=== PATIENT | female | born 1970 | race Caucasian/White ===

== ENCOUNTER 2019-01-29 14:53 | Emergency (ER) | payer MEDICAID ==
[2019-01-29 15:16] VITALS: BP 110/96
[2019-01-29] MEDS ORDERED: NORMAL SALINE 1000 ML 1,000 ML IV ONE (15:56)
[2019-01-29] MEDS ORDERED: HYDROMORPHONE HCL INJ/PF 2 MG/ML AMPULE IV ONE (15:56)
--- NOTE | 2019-01-29 15:57 | RADIOLOGY REPORT (SQ) ---
EXAM DESCRIPTION: HIP LEFT AP/LATERAL COMPLETED DATE/TIME: 01/29/2019 3:13 pm REASON FOR STUDY: bed 13 molina r/o fracture +tenderness COMPARISON: None. NUMBER OF VIEWS: Two views. TECHNIQUE: AP pelvis and additional frog-leg view of the left hip. LIMITATIONS: None. FINDINGS: MINERALIZATION: Normal. LEFT HIP: No fracture or dislocation. No worrisome bone lesions. RIGHT HIP: No fracture or dislocation. No worrisome bone lesions. PUBIS AND ISCHIUM: No fracture. PELVIS: No fracture. SACRUM: No fracture or dislocation. No worrisome bone lesions. LOWER LUMBAR SPINE: No fracture or dislocation. No worrisome bone lesions. No significant disc disea se. SOFT TISSUES: No findings. OTHER: No other significant finding. IMPRESSION: NEGATIVE STUDY OF THE LEFT HIP AND PELVIS. NO RADIOGRAPHIC EVIDENCE OF ACUTE INJURY. TECHNICAL DOCUMENTATION: JOB ID: [id number] [employer]- All Rights Reserved Reading location - IP/workstation name: [email or web address]
--- NOTE | 2019-01-29 16:00 | ER Document Report ---
ED General - General Chief Complaint: Hip Injury Stated Complaint: FALL/FOOT PAIN Time Seen by Provider: 01/29/19 15:01 TRAVEL OUTSIDE OF THE [place] IN LAST 30 DAYS: No - HPI Notes: Patient is a 48-year-old female that presents to the emergency department for chief complaint of fall. Patient reports history of metastatic breast cancer. She states over the last few weeks she has had increasing issues with balance and increasing frequency of headaches. She states today she stood up out of a chair and lost her balance falling backwards landing on her left side. She does not believe she hit her head. She denies any loss of consciousness. She is complaining of a sharp pain in her left hip and is worse with any movement. She did receive fentanyl by EMS and reports no improvement of pain. She denies being on prescription pain medications at home. Patient states since being in the emergency room she has developed a achy pain in her thoracic back. She denies any difficulty breathing or chest pain. She denies recent fevers or chills. Patient does currently have a headache which feels like the headache she has been having over the last few weeks. She describes it as diffuse and throbbing. Patient reports having a contrasted MRI of her brain at [facility] last week that was read as likely no metastasis. Patient also states she has been having numbness in her left foot. Last week the numbness was mostly located on the plantar surface of the left foot in her left toes but has since started spreading up her left leg, she now reports decreased sensation below her left knee. Past Medical History: Metastatic breast cancer Past Surgical History: Mastectomy Social History: Lives at home. Denies alcohol and tobacco abuse Family History: Reviewed and noncontributory for presenting illness Allergies: Reviewed, see documented allergy list. REVIEW OF SYSTEMS: CONSTITUTIONAL : No fever No chills No diaphoresis No recent illness EENT: No vision changes No congestion No sore throat CARDIOVASCULAR: No chest pain No palpitations RESPIRATORY: No shortness of breath No cough No difficulty breathing GASTROINTESTINAL: No abdominal pain No nausea No vomiting No diarrhea GENITOURINARY: No dysuria No hematuria No difficulty urinating MUSCULOSKELETAL: back pain leg pain No arm pain SKIN: No rashes No lesions LYMPHATIC: No swollen, enlarged glands. NEUROLOGICAL: No lightheadedness headache No weakness paresthesias PSYCHIATRIC: No anxiety No depression PHYSICAL EXAMINATION: Vital signs reviewed, nursing noted reviewed. GENERAL: Appears uncomfortable, well-nourished and in no acute distress. HEAD: Atraumatic, normocephalic. EYES: Eyes appear normal, extraocular movements intact, sclera anicteric, conjunctiva are normal. ENT: nares patent, oropharynx clear without exudates. Moist mucous membranes. NECK: Normal range of motion, supple without lymphadenopathy LUNGS: Breath sounds clear to auscultation bilaterally and equal. No wheezes rales or rhonchi. HEART: Regular rate and rhythm without murmurs ABDOMEN: Soft, nontender, normoactive bowel sounds. No rebound, guarding, or rigidity. No masses appreciated. Back: Bilateral paraspinal tenderness in the thoracic region, mild midline tenderness in her thoracic spine without deformity or step-off. No lumbar central or paraspinal tenderness. Normal range of motion of the spine. EXTREMITIES: Tenderness to palpation of the left hip with decreased range of m otion, no obvious deformity or extremity shortening or rotation., good range of motion, no pitting or edema. NEUROLOGICAL: No focal neurological deficits. Moves all extremities spontaneously Motor and sensory grossly intact on exam. PSYCH: Normal mood, normal affect. SKIN: Warm, Dry, normal turgor, no rashes or lesions noted on exposed skin - Related Data Allergies/Adverse Reactions: adhesive tape Allergy (Verified 01/29/19 15:12) iodine Allergy (Verified 01/29/19 15:11) latex Allergy (Verified 01/29/19 15:11) shellfish derived Allergy (Verified 01/29/19 15:11) Past Medical History - Social History Smoking Status: Unknown if Ever Smoked Family History: Reviewed & Not Pertinent Patient has suicidal ideation: No Patient has homicidal ideation: No - Past Medical History Cardiac Medical History: Reports: Hx Congestive Heart Failure - L-sided Physical Exam - Vital signs Vitals: Pulse BP Pulse Ox 71 110/96 H 100 01/29/19 15:13 01/29/19 15:13 01/29/19 15:13 Course - Re-evaluation Re-evalutation: 01/29/19 16:00 Vitals reviewed. Nursing notes reviewed. Patient received fentanyl by EMS but still appears very uncomfortable. She will be given Dilaudid for further pain control. 01/29/19 17:47 Patient's x-ray showed no acute hip fracture however she was still having significant tenderness. Patient had a CT scan next of the lower extremity which shows no pelvic or hip fractures. On reevaluation she did have some symptomatic relief after receiving the Dilaudid. The pain medication has made her nauseated and she was ordered Zofran. Patient's blood work is unremarkable. CT scan and x-rays show no other acute injuries. Patient will be given Zofran for her continued nausea. She was counseled on rest, ice and elevation. Laboratory 01/29/19 01/29/19 16:20 16:20 WBC 8.2 RBC 4.18 Hgb 13.4 Hct 39.1 MCV 94 MCH 32.0 MCHC 34.3 RDW 13.2 Plt Count 304 Lymph % (Auto) 22.6 [place] % (Auto) 5.2 Eos % (Auto) 0.6 Baso % (Auto) 0.8 Absolute Neuts (auto) 5.8 Absolute Lymphs (auto) 1.9 Absolute Monos (auto) 0.4 Absolute Eos (auto) 0.0 Absolute Basos (auto) 0.1 Seg Neutrophils % 70.8 Sodium 136.7 L Potassium 3.8 Chloride 104 Carbon Dioxide 22 Anion Gap 11 BUN 18 Creatinine 0.68 Est GFR ( Amer) > 60 Est GFR (MDRD) Non-Af > 60 Glucose 84 Calcium 9.8 Hip X-Ray 01/29/19 00:00 IMPRESSION: NEGATIVE STUDY OF THE LEFT HIP AND PELVIS. NO RADIOGRAPHIC EVIDENCE OF ACUTE INJURY. Head CT 01/29/19 15:55 IMPRESSION: NORMAL BRAIN CT WITHOUT CONTRAST. EVIDENCE OF ACUTE STROKE: NO. Lower Extremity CT 01/29/19 15:55 IMPRESSION: NO ACUTE OR SIGNIFICANT FINDINGS IN THE HIP OR PELVIS. Chest X-Ray 01/29/19 15:57 IMPRESSION: NO ACUTE RADIOGRAPHIC FINDING IN THE CHEST. Patient will follow closely with her primary care. She will return for new or worsening symptoms. She is stable at discharge. - Vital Signs Vital signs: Temp Pulse Resp BP Pulse Ox 98.0 F 71 110/96 H 100 01/29/19 15:15 01/29/19 15:13 01/29/19 15:13 01/29/19 15:13 - Laboratory Result Diagrams: 01/29/19 16:20 01/29/19 16:20 Laboratory results interpreted by me: 01/29/19 16:20 Sodium 136.7 L Discharge - Discharge Clinical Impression: Left hip pain Condition: Stable Disposition: HOME, SELF-CARE Instructions: Contusion ([facility]) Additional Instructions: Please return to the emergency department if you have any worsening, or concern of your symptoms. Please return to the emergency department if you develop chest pain, difficulty breathing, severe abdominal pain, or ongoing vomiting. Please follow-up with your primary care physician in 2-3 days and any other recommended physicians. If prescribed, take all medications as directed. If you have any questions or concerns do not hesitate to return the emergency department for evaluation. Please continue to follow with your oncologist for further evaluation of your pe ripheral numbness and metastases.
[2019-01-29 16:35] LABS: ABSOLUTE BASOPHILS # (AUTO) 0.1 10^3/uL (0.0-0.2); ABSOLUTE LYMPHOCYTES (AUTO) 1.9 10^3/uL (0.5-4.7); ABSOLUTE MONOCYTES (AUTO) 0.4 10^3/uL (0.1-1.4); ABSOLUTE NEUT (AUTO) 5.8 10^3/uL (1.7-8.2); BASOPHILS % (AUTO) 0.8 % (0-2); EOSINOPHILS % (AUTO) 0.6 % (0-6); HEMATOCRIT 39.1 % (36.0-47.0); HEMOGLOBIN 13.4 g/dL (12.0-15.5); LYMPHOCYTES % (AUTO) 22.6 % (13-45); MEAN CORPUSCULAR HGB CONC 34.3 g/dL (32.0-36.0); MEAN CORPUSCULAR VOLUME 94 fl (80-97); MONOCYTES % (AUTO) 5.2 % (3-13); PLATELET COUNT 304 10^3/uL (150-450); RED BLOOD COUNT 4.18 10^6/uL (3.72-5.28); RED CELL DISTRIBUTION WIDTH 13.2 % (11.5-14.0); SEGMENTED NEUTROPHILS % (AUTO) 70.8 % (42-78); TOTAL CELLS COUNTED % (AUTO) 100 %; WHITE BLOOD COUNT 8.2 10^3/uL (4.0-10.5)
[2019-01-29 16:51] LABS: ANION GAP 11 (5-19); BLOOD UREA NITROGEN 18 mg/dL (7-20); CALCIUM 9.8 mg/dL (8.4-10.2); CARBON DIOXIDE 22 mmol/L (22-30); CHLORIDE 104 mmol/L (98-107); GLUCOSE 84 mg/dL (75-110); POTASSIUM 3.8 mmol/L (3.6-5.0)
--- NOTE | 2019-01-29 16:59 | RADIOLOGY REPORT (SQ) ---
EXAM DESCRIPTION: CT HEAD WITHOUT COMPLETED DATE/TIME: 01/29/2019 4:49 pm REASON FOR STUDY: headache, hx metastatic breast CA COMPARISON: None. TECHNIQUE: Axial images acquired through the brain without intravenous contrast. Images reviewed wi th bone, brain and subdural windows. Additional sagittal and coronal reconstructions were generated. Images stored on PACS. All CT scanners at this facility use dose modulation, iterative reconstruction, and/or weight based d osing when appropriate to reduce radiation dose to as low as reasonably achievable (ALARA). [facility]: Dose Right [facility]: CareDose [facility]: Dose Right [facility]: Teradose 4D [facility]: [employer] RADIATION DOSE: CT Rad equipment meets quality standard of care and radiation dose reduction techniq ues were employed. CTDIvol: 53.2 mGy. DLP: 1044 mGy-cm. mGy. LIMITATIONS: None. FINDINGS: VENTRICLES: Normal size and contour. CEREBRUM: No masses. No hemorrhage. No midline shift. No evidence for acute infarction. Normal gra y/white matter differentiation. No areas of low density in the white matter. CEREBELLUM: No masses. No hemorrhage. No alteration of density. No evidence for acute infarction. EXTRAAXIAL SPACES: No fluid collections. No masses. ORBITS AND GLOBE: No intra- or extraconal masses. Normal contour of globe without masses. CALVARIUM: No fracture. PARANASAL SINUSES: No fluid or mucosal thickening. SOFT TISSUES: No mass or hematoma. OTHER: No other significant finding. IMPRESSION: NORMAL BRAIN CT WITHOUT CONTRAST. EVIDENCE OF ACUTE STROKE: NO. COMMENT: Quality ID # [id number]: Final reports with documentation of one or more dose reduction techniques (e.g., Automated exposure control, adjustment of the mA and/or kV according to patient size, use of iterative reconstruction technique) TECHNICAL DOCUMENTATION: JOB ID: [id number] [employer]- All Rights Reserved Reading location - IP/workstation name: [email or web address]
--- NOTE | 2019-01-29 17:00 | RADIOLOGY REPORT (SQ) ---
EXAM DESCRIPTION: CT LT LOWER EXTREMITY WITHOUT COMPLETED DATE/TIME: 01/29/2019 4:49 pm REASON FOR STUDY: left hip trauma COMPARISON: None. TECHNIQUE: CT scan of the left hip performed without intravenous or oral contrast. Images reviewed with soft tissue and bone windows. Reconstructed coronal and sagittal MPR images reviewed. All imag es stored on PACS. All CT scanners at this facility use dose modulation, iterative reconstruction, and/or weight based d osing when appropriate to reduce radiation dose to as low as reasonably achievable (ALARA). [facility]: Dose Right [facility]: CareDose [facility]: Dose Right [facility]: Teradose 4D [facility]: [employer] RADIATION DOSE: CT Rad equipment meets quality standard of care and radiation dose reduction techniq ues were employed. CTDIvol: 4.1 mGy. DLP: 128 mGy-cm. mGy. LIMITATIONS: None. FINDINGS: PELVIC BONES: No acute fracture. No worrisome bone lesions. VISUALIZED SPINE: No acute findings. SYMPTOMATIC HIP: No acute fracture or dislocation. No worrisome bone lesions. OPPOSITE HIP: No acute fracture or dislocation. No worrisome bone lesions. PELVIC SOFT TISSUES: No significant findings. EXTRAPELVIC SOFT TISSUES: No significant findings. OTHER: No other significant finding. IMPRESSION: NO ACUTE OR SIGNIFICANT FINDINGS IN THE HIP OR PELVIS. TECHNICAL DOCUMENTATION: JOB ID: [id number] Quality ID # [id number]: Final reports with documentation of one or more dose reduction techniques (e.g., Au tomated exposure control, adjustment of the mA and/or kV according to patient size, use of iterative reconstruction technique) 2010 [employer]- All Rights Reserved Reading location - IP/workstation name: [email or web address]
--- NOTE | 2019-01-29 17:19 | RADIOLOGY REPORT (SQ) ---
EXAM DESCRIPTION: CHEST 2 VIEWS COMPLETED DATE/TIME: 01/29/2019 5:02 pm REASON FOR STUDY: trauma COMPARISON: None. EXAM PARAMETERS: NUMBER OF VIEWS: two views TECHNIQUE: Digital Frontal and Lateral radiographic views of the chest acquired. RADIATION DOSE: NA LIMITATIONS: none FINDINGS: LUNGS AND PLEURA: No opacities, masses or pneumothorax. No pleural effusion. MEDIASTINUM AND HILAR STRUCTURES: No masses or contour abnormalities. HEART AND VASCULAR STRUCTURES: Heart size upper limits normal. No evidence for failure. BONES: No acute findings. HARDWARE: Left dialysis catheter tip overlying SVC. Right axillary clips. OTHER: No other significant finding. IMPRESSION: NO ACUTE RADIOGRAPHIC FINDING IN THE CHEST. TECHNICAL DOCUMENTATION: JOB ID: [id number] [employer]- All Rights Reserved Reading location - IP/workstation name: [email or web address]
[2019-01-29] MEDS ORDERED: ONDANSETRON HCL INJ/PF 4 MG/2 ML SDV IV ONE (17:32)
[2019-01-29] MEDS ORDERED: ONDANSETRON ODT 4 MG TAB (6 TAB/ER DISP) PO PRN (17:47)
== END 2019-01-29 18:10 | disposition home or self-care (01) ==
LOC: ER 14:53
DX: M25.552 Pain in left hip (principal); R51 Headache; M54.6 Pain in thoracic spine; R20.0 Anesthesia of skin; W01.0XXA Fall on same level from slipping, tripping and stumbling without subsequent striking against object, initial encounter; I50.9 Heart failure, unspecified; Z91.040 Latex allergy status; Z91.013 Allergy to seafood; Z90.10 Acquired absence of unspecified breast and nipple; Z85.3 Personal history of malignant neoplasm of breast
CPT/HCPCS: 99284; 96361; 96374; 96375; 36415; 85025; 80048; 71046; 73502; 70450; 73700; J1170; J2405; J7030

== ENCOUNTER 2019-02-09 12:45 | Emergency (ER) | payer SELFPAY ==
[2019-02-09] MEDS ORDERED: LIDOCAINE 2% VISCOUS SOLN 20 ML UDCUP PO ONE (15:21)
[2019-02-09] MEDS ORDERED: OXYCODONE-ACETAMINOPHEN 5-325 MG TABLET PO ONE (15:22)
--- NOTE | 2019-02-09 15:23 | ER Document Report ---
HPI - HPI Patient complains to provider of: Sore throat Time Seen by Provider: 02/09/19 15:15 Onset: Yesterday Onset/Duration: Gradual Quality of pain: Throbbing Pain Level: 5 Context: Patient presents complaining of sore throat that started yesterday. Patient reports subjective fever at home. No cough. Patient does complain of body aches. Associated Symptoms: Body/muscle aches, Chills, Fever, Sore throat. denies: Nonproductive cough, Productive cough Exacerbated by: Denies Relieved by: Denies Similar symptoms previously: Yes Recently seen / treated by doctor: No - ROS ROS below otherwise negative: Yes Systems Reviewed and Negative: Yes All other systems reviewed and negative - CONSTITUTIONAL Constitutional: REPORTS: Fever, Chills - EENT EENT: REPORTS: Sore Throat. DENIES: Ear Pain - RESPIRATORY Respiratory: DENIES: Coughing - GASTROINTESTINAL Gastrointestinal: DENIES: Patient vomiting - REPRODUCTIVE Reproductive: DENIES: : - DERM Skin Color: Normal Skin Problems: None Past Medical History - General Information source: Patient - Social History Smoking Status: Never Smoker Frequency of alcohol use: Occasional Drug Abuse: None Occupation: none Lives with: Family, Spouse/Significant other Family History: Reviewed & Not Pertinent - Past Medical History Cardiac Medical History: Reports: Hx Congestive Heart Failure - L-sided Malignancy Medical History: Reports: Hx Breast Cancer Past Surgical History: Reports: Hx Breast Surgery Vertical Provider Document - CONSTITUTIONAL Agree With Documented VS: Yes Exam Limitations: No Limitations General Appearance: WD/WN, No Apparent Distress - INFECTION CONTROL TRAVEL OUTSIDE OF THE [place] IN LAST 30 DAYS: No - HEENT HEENT: Atraumatic, Normocephalic, Pharyngeal Tenderness, Pharyngeal Erythema. negative: Pharyngeal Exudate - NECK Neck: Normal Inspection, Supple. negative: Lymphadenopathy-Left, Lymphadenopathy-Right - RESPIRATORY Respiratory: Breath Sounds Normal, No Respiratory Distress - CARDIOVASCULAR Cardiovascular: Regular Rate, Regular Rhythm, No Murmur - MUSCULOSKELETAL/EXTREMETIES Musculoskeletal/Extremeties: MAEW - NEURO Level of Consciousness: Awake, Alert, Appropriate Motor/Sensory: No Motor Deficit - DERM Integumentary: Warm, Dry, No Rash Course - Vital Signs Vital signs: Temp Pulse Resp BP Pulse Ox 97.8 F 104 H 20 101/61 95 02/09/19 12:53 02/09/19 12:53 02/09/19 12:53 02/09/19 12:53 02/09/19 12:53 - Laboratory Laboratory results interpreted by me: 02/09/19 16:03 Labs- Entire Visit 02/09/19 15:30 Group A Strep Rapid POSITIVE Discharge - Discharge Clinical Impression: Strep throat Condition: Stable Disposition: HOME, SELF-CARE Instructions: Antibiotic Shot ([facility]), Strep Throat ([facility]) Additional Instructions: Return immediately for any new or worsening symptoms Followup with your primary care provider, call tomorrow to make a followup appointment Prescriptions: Naproxen [Naprosyn 250 Nmg Tablet] 1 tab PO BID #14 tablet Ondansetron HCl [Zofran 4 mg Tablet] 1 - 2 tab PO Q6 PRN #8 tablet PRN Reason: Referrals: [facility] [Provider Group] - Follow up as needed
[2019-02-09] MEDS ORDERED: ONDANSETRON 4 MG TAB.RAPDIS PO ONE (15:25)
[2019-02-09] MEDS ORDERED: PENICILLIN G BENZATHINE 1.2 MILLION UNIT/2 ML DISP.SYRIN IM ONE (16:02)
[2019-02-09 16:27] VITALS: BP 100/75
== END 2019-02-09 16:38 | disposition home or self-care (01) ==
LOC: ER 12:45
DX: J02.0 Streptococcal pharyngitis (principal); R50.9 Fever, unspecified
CPT/HCPCS: 87880; S0119; J3490; J0561; 96374; 99283

== ENCOUNTER → 2019-04-07 | Outpatient (CLI) | payer MEDICAID ==
--- NOTE | 2019-04-07 17:38 | RADIOLOGY REPORT (SQ) ---
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 RADIONUCLIDE AND DOSE: 22 millicuries Tc-99m Sestamibi. The route of agent administration: Intravenous ADDITIONAL DRUGS AND DOSES: None. TECHNIQUE: Early and delayed images of the neck acquired following radionuclide administration. LIMITATIONS: None. FINDINGS: Thyroid: Normal size. Homogeneous activity. Normal washout. No focal lesions. Parathyroid: No retained activity in the thyroid or elsewhere in the neck to indicate a parathyroid a denoma. Other: No other significant findings. IMPRESSION: NORMAL STUDY. NO EVIDENCE OF PARATHYROID ADENOMA. TECHNICAL DOCUMENTATION: JOB ID: [id number] [employer]- All Rights Reserved Reading location - IP/workstation name: [email or web address]
== END ==
LOC: RAD 09:52
PROVIDERS: ATTEND Family Medicine
DX: D35.1 Benign neoplasm of parathyroid gland (principal)
CPT/HCPCS: 78070; A9500; Q9969

== ENCOUNTER 2019-12-24 17:53 | Inpatient (IN) | payer MEDICAID ==
--- NOTE | 2019-12-24 18:33 | RADIOLOGY REPORT (SQ) ---
EXAM DESCRIPTION: CHEST SINGLE VIEW IMAGES COMPLETED DATE/TIME: 12/24/2019 5:18 pm REASON FOR STUDY: shortness of breath COMPARISON: Chest radiograph, 01/29/2019 EXAM PARAMETERS: NUMBER OF VIEWS: One view. TECHNIQUE: Single frontal radiographic view of the chest acquired. RADIATION DOSE: NA LIMITATIONS: None. FINDINGS: LUNGS AND PLEURA: There is focal consolidation in the right mid lung. No pleural effusion or pneumothorax. Lungs are hyperinflated. MEDIASTINUM AND HILAR STRUCTURES: No masses. Contour normal. HEART AND VASCULAR STRUCTURES: Heart normal in size. Normal vasculature. BONES: No acute findings. HARDWARE: Right axillary clips. A left IJ central scratched by a left central venous catheter remain s present unchanged from prior. OTHER: No other significant finding. IMPRESSION: New focal consolidation in the right mid lung suspicious for pneumonia. TECHNICAL DOCUMENTATION: JOB ID: [id number] 2010 [employer]- All Rights Reserved Reading location - IP/workstation name: [email or web address]
[2019-12-24] MEDS ORDERED: AZITHROMYCIN INJ 500 MG VIAL IV ONE (19:00)
[2019-12-24] MEDS ORDERED: RINGERS LACTATED IV ONE (19:08)
[2019-12-24] MEDS ORDERED: ACETAMINOPHEN 325 MG TABLET PO ONE (19:08)
--- NOTE | 2019-12-24 19:15 | ER Document Report ---
ED Respiratory Problem - General Stated Complaint: FEVER Time Seen by Provider: 12/24/19 18:42 Primary Care Provider: JARETH PAREDES DO [Primary Care Provider] - Follow up as needed Information source: Patient Notes: Patient presents with cough and fever for the past 3 days. Patient denies any nausea vomiting or diarrhea. Patient complains of generalized fatigue. Patient does report an previous history of asthma as well as triple negative breast cancer that is currently in remission. Patient initial oxygen saturation in the upper 80s, oxygen was applied at 3 L and saturation increased to the low 90s. TRAVEL OUTSIDE OF THE [place] IN LAST 30 DAYS: No - HPI Patient complains to provider of: Cough, Short of breath Onset: Other - 3 days Duration: Worse/persistent Quality of pain: Achy Pain Level: 1 Context: Hx asthma. denies: Recent immobilization, Recent surgery, Smoker Sputum amount: Small Sputum color: Green, Yellow Associated symptoms: Chills, Cough, Fever, Short of breath. denies: Wheezing Similar symptoms previously: No Recently seen / treated by doctor: No - Related Data Allergies/Adverse Reactions: adhesive tape Allergy (Verified 02/09/19 12:46) iodine Allergy (Verified 02/09/19 12:46) latex Allergy (Verified 02/09/19 12:46) shellfish derived Allergy (Verified 02/09/19 12:46) Past Medical History - General Information source: Patient - Social History Smoking Status: Never Smoker Frequency of alcohol use: None Drug Abuse: None Occupation: None Lives with: Family Family History: Reviewed & Not Pertinent Pulmonary Medical History: Reports: Hx Asthma Renal/ Medical History: Denies: Hx Peritoneal Dialysis Malignancy Medical History: Reports: Hx Breast Cancer Musculoskeletal Medical History: Reports Hx Arthritis Past Surgical History: Reports: Hx Breast Surgery, Hx Mastectomy - rt, Hx Orthopedic Surgery - R knee Review of Systems - Review of Systems Constitutional: Fever, Malaise EENT: No symptoms reported Cardiovascular: No symptoms reported. denies: Chest pain Respiratory: Cough, Short of breath, Sputum Gastrointestinal: No symptoms reported. denies: Abdominal pain, Diarrhea, Nausea, Vomiting Genitourinary: No symptoms reported Female Genitourinary: No symptoms reported Musculoskeletal: Back pain - Chronic Skin: No symptoms reported Hematologic/Lymphatic: No symptoms reported Neurological/Psychological: No symptoms reported Physical Exam - Vital signs Vitals: Pulse Ox 91 L 12/24/19 18:09 - General General appearance: Appears well, Alert In distress: None - HEENT Head: Normocephalic, Atraumatic Eyes: Normal Conjunctiva: Normal - Respiratory Respiratory status: No respiratory distress Chest status: Nontender Breath sounds: Productive cough, Rhonchi Chest palpation: Normal Notes: Right mastectomy postsurgical changes - Cardiovascular Rhythm: Tachycardia Heart sounds: S1 appreciated, S2 appreciated Murmur: No - Abdominal Inspection: Normal Tenderness: Nontender - Back Back: Tender - Lumbar - Extremities General upper extremity: Normal inspection, Normal strength General lower extremity: Normal inspection, Normal strength - Neurological Neuro grossly intact: Yes Cognition: Normal [place] Coma Scale Eye Opening: Spontaneous [place] Coma Scale Verbal: Oriented [place] Coma Scale Motor: Obeys Commands [place] Coma Scale Total: 15 - Psychological Associated symptoms: Normal affect, Normal mood - Skin Skin Temperature: Warm Skin Moisture: Dry Skin Color: Normal Course - Re-evaluation Re-evalutation: 12/24/19 20:07 Patient's oxygen saturation 92% on 3 L of oxygen at this time. Patient does have a right middle lobe consolidation worrisome for pneumonia. Patient will be COVID tested at this time. Discussed with patient concern about need for admission given her hypoxia. Patient is agreeable with plan for admission. Consulted with Dr. Thompson who does agree to accept patient for admission at this time. - Vital Signs Vital signs: Temp Pulse Resp BP Pulse Ox 102.3 F H 112 H 9 L 118/70 91 L 12/24/19 18:45 12/24/19 18:45 12/24/19 20:10 12/24/19 20:10 12/24/19 20:10 - Laboratory Result Diagrams: 12/24/19 18:51 12/24/19 18:51 Laboratory results interpreted by me: 12/24/19 12/24/19 12/24/19 18:18 18:51 18:51 RBC 3.27 L Hgb 10.2 L Hct 29.8 L Lymph % (Auto) 9.7 L Seg Neutrophils % 83.4 H Sodium 128.3 L Chloride 92 L Est GFR (MDRD) Non-Af 59 L Urine Protein 100 H Urine Glucose (UA) 50 H Urine Ketones 20 H Urine Blood MODERATE H Urine Urobilinogen 4.0 H Ur Leukocyte Esterase SMALL H Labs- All tests 24 hr 0712/24/19 12/24/19 18:18 18:51 18:51 WBC 9.0 RBC 3.27 L Hgb 10.2 L Hct 29.8 L MCV 91 MCH 31.2 MCHC 34.2 RDW 13.3 Plt Count 219 Lymph % (Auto) 9.7 L [place] % (Auto) 6.6 Eos % (Auto) 0.1 Baso % (Auto) 0.2 Absolute Neuts (auto) 7.5 Absolute Lymphs (auto) 0.9 Absolute Monos (auto) 0.6 Absolute Eos (auto) 0.0 Absolute Basos (auto) 0.0 Seg Neutrophils % 83.4 H PT INR Sodium 128.3 L Potassium 3.6 Chloride 92 L Carbon Dioxide 29 Anion Gap 7 BUN 10 Creatinine 1.00 Est GFR ( Amer) > 60 Est GFR (MDRD) Non-Af 59 L Glucose 99 Lactic Acid Calcium 8.4 Total Bilirubin 1.0 Direct Bilirubin 0.4 Neonat Total Bilirubin Not Reportable Neonat Direct Bilirubin Not Reportable Neonat Indirect Bili Not Reportable AST 32 ALT 20 Alkaline Phosphatase 112 Total Protein 6.5 Albumin 3.5 Serum HCG, Qual Urine Color MARGARITO Urine Appearance CLOUDY Urine pH 6.0 Ur Specific [place] 1.020 Urine Protein 100 H Urine Glucose (UA) 50 H Urine Ketones 20 H Urine Blood MODERATE H Urine Nitrite NEGATIVE Urine Bilirubin NEGATIVE Urine Urobilinogen 4.0 H Ur Leukocyte Esterase SMALL H Urine WBC (Auto) 6 Urine RBC (Auto) 16 Urine Bacteria (Auto) TRACE Squamous Epi Cells Auto 5 Amorphous Sediment Auto TRACE Urine Mucus (Auto) RARE Urine Ascorbic Acid NEGATIVE 12/24/19 12/24/19 12/24/19 18:51 18:51 18:51 WBC RBC Hgb Hct MCV MCH MCHC RDW Plt Count Lymph % (Auto) [place] % (Auto) Eos % (Auto) Baso % (Auto) Absolute Neuts (auto) Absolute Lymphs (auto) Absolute Monos (auto) Absolute Eos (auto) Absolute Basos (auto) Seg Neutrophils % PT 15.4 INR 1.21 Sodium Potassium Chloride Carbon Dioxide Anion Gap BUN Creatinine Est GFR ( Amer) Est GFR (MDRD) Non-Af Glucose Lactic Acid 0.7 Calcium Total Bilirubin Direct Bilirubin Neonat Total Bilirubin Neonat Direct Bilirubin Neonat Indirect Bili AST ALT Alkaline Phosphatase Total Protein Albumin Serum HCG, Qual NEGATIVE Urine Color Urine Appearance Urine pH Ur Specific [place] Urine Protein Urine Glucose (UA) Urine Ketones Urine Blood Urine Nitrite Urine Bilirubin Urine Urobilinogen Ur Leukocyte Esterase Urine WBC (Auto) Urine RBC (Auto) Urine Bacteria (Auto) Squamous Epi Cells Auto Amorphous Sediment Auto Urine Mucus (Auto) Urine Ascorbic Acid - Diagnostic Test Radiology reviewed: Image reviewed, Reports reviewed Discharge - Discharge Clinical Impression: Hypoxia Fever Qualifiers: Fever type: unspecified Qualified Code(s): R50.9 - Fever, unspecified RML pneumonia Qualifiers: Pneumonia type: due to unspecified organism Qualified Code(s): J18.9 - Pneumonia, unspecified organism Condition: Fair Disposition: ADMITTED INPATIENT Admitting Provider: Jay (Hospitalist) Unit Admitted: [facility] - covid unit Referrals: JARETH PAREDES DO [Primary Care Provider] - Follow up as needed
[2019-12-24 19:17] LABS: ABSOLUTE LYMPHOCYTES (AUTO) 0.9 10^3/uL (0.5-4.7); ABSOLUTE MONOCYTES (AUTO) 0.6 10^3/uL (0.1-1.4); ABSOLUTE NEUT (AUTO) 7.5 10^3/uL (1.7-8.2); BASOPHILS % (AUTO) 0.2 % (0-2); EOSINOPHILS % (AUTO) 0.1 % (0-6); HEMATOCRIT 29.8 % (36.0-47.0); HEMOGLOBIN 10.2 g/dL (12.0-15.5); LYMPHOCYTES % (AUTO) 9.7 % (13-45); MEAN CORPUSCULAR HEMOGLOBIN 31.2 pg (27.0-33.4); MEAN CORPUSCULAR HGB CONC 34.2 g/dL (32.0-36.0); MEAN CORPUSCULAR VOLUME 91 fl (80-97); MONOCYTES % (AUTO) 6.6 % (3-13); PLATELET COUNT 219 10^3/uL (150-450); RED BLOOD COUNT 3.27 10^6/uL (3.72-5.28); RED CELL DISTRIBUTION WIDTH 13.3 % (11.5-14.0); SEGMENTED NEUTROPHILS % (AUTO) 83.4 % (42-78); TOTAL CELLS COUNTED % (AUTO) 100 %
[2019-12-24 19:24] LABS: AMORPHOUS SEDIMENT,URINE TRACE /HPF; APPEARANCE,URINE CLOUDY; BILIRUBIN,URINE NEGATIVE (NEGATIVE); COLOR,URINE AMBER; GLUCOSE, URINE 50 mg/dL (NEGATIVE); KETONES,URINE 20 mg/dL (NEGATIVE); LEUKOCYTE ESTERASE,URINE SMALL (NEGATIVE); NITRITE,URINE NEGATIVE (NEGATIVE); PROTEIN,URINE 100 mg/dL (NEGATIVE)
[2019-12-24 19:27] LABS: ALBUMIN 3.5 g/dL (3.5-5.0); ALKALINE PHOSPHATASE 112 U/L (38-126); ANION GAP 7 (5-19); ASPARTATE AMINO TRANSFERASE 32 U/L (14-36); BILIRUBIN,DIRECT 0.4 mg/dL (0.0-0.4); BLOOD UREA NITROGEN 10 mg/dL (7-20); CALCIUM 8.4 mg/dL (8.4-10.2); CARBON DIOXIDE 29 mmol/L (22-30); CHLORIDE 92 mmol/L (98-107); GLUCOSE 99 mg/dL (75-110); INTERNATIONAL RATION (INR) 1.21; POTASSIUM 3.6 mmol/L (3.6-5.0); PROTHROMBIN TIME 15.4 SEC (11.4-15.4); TOTAL PROTEIN 6.5 g/dL (6.3-8.2)
[2019-12-24] MEDS ORDERED: CEFTRIAXONE 1 GM/D5W RTU 1 GM/50 ML RTUPB IV ONE (19:30)
[2019-12-24] MEDS ORDERED: BUSPIRONE HCL 10 MG TABLET PO ONE (20:44)
--- NOTE | 2019-12-24 20:59 | PDOC H&P ---
History of Present Illness Admission Date/PCP: 12/24/2019 20:31 JARETH PAREDES DO Patient complains of: Fever and chills History of Present Illness: CHRISTEL FERNANDEZ is a 49 year old female who presents the emergency room with a 3-day history of fever and chills. She admits a constant moderate to severe subjective fever and chills for the last 3 days. Her fever has been accompanied by a minimally productive cough (very small amounts of yellow/green mucus) and moderate dyspnea worsened by exertion. Her fever has been associated with generalized malaise, ague and fatigue. She denies other associated or accompanying signs and symptoms. She denies prior similar episodes. She has not identified any aggravating or ameliorating factors for her fever. In the emergency room she was found to have a fever of 102.3 F and an oxygen saturation of 88% on room air. She was subsequently treated with supplemental oxygen and a chest x-ray was performed showing a right middle lobe pneumonia. Antibiotic therapy with azithromycin and Rocephin was initiated in the emergency room. COVID-19 testing was performed and the patient was admitted to the patient under investigation section of the COVID-19 wing. Past Medical History Cardiac Medical History: Denies: Coronary Artery Disease, Hyperlipidema, Hypertension Pulmonary Medical History: Reports: Asthma, Chronic Obstructive Pulmonary Disease (COPD) EENT Medical History: Denies: Cataracts, Ears - Hearing aids Neurological Medical History: Denies: Hemorrhagic CVA, Ischemic CVA, Seizures Endocrine Medical History: Reports: Obesity Denies: Diabetes Mellitus Type 1, Diabetes Mellitus Type 2, Hyperthyroidism, Hypothyroidism Renal/ Medical History: Denies: Chronic Kidney Disease, Nephrolithiasis Malignancy Medical History: Reports: Breast Cancer GI Medical History: Denies: Cirrhosis, Crohn's Disease, Hepatitis, Peptic Ulcer Disease, Ulcerative Colitis Musculoskeltal Medical History: Reports: Arthritis, Other - Chronic back pain Denies: Gout Skin Medical History: Denies: Eczema, Psoriasis Psychiatric Medical History: Denies: Alcohol Dependency, Substance Abuse, Tobacco Dependency Traumatic Medical History: Reports: None Hematology: Denies: Anemia, Bleeding Tendencies Infectious Medical History: Reports: None Past Surgical History Past Surgical History: Reports: Mastectomy - rt, Orthopedic Surgery - R knee Social History Information Source: Patient Lives with: Family Smoking Status: Never Smoker Electronic Cigarette use?: No Frequency of Alcohol Use: None Hx Recreational Drug Use: No Drugs: None Hx Prescription Drug Abuse: No - Advance Directive Resuscitation Status: Full Code Surrogate healthcare decision maker:: Amada Carr Family History Family History: CAD, Hypertension, Malignancy. denies: DM Parental Family History Reviewed: Yes Children Family History Reviewed: No Sibling(s) Family History Reviewed.: Yes Medication/Allergy Home Medications: Albuterol Sulfate [Proair Hfa Inhalation Aerosol 8.5 gm Mdi] 2 puff IH BID 12/25/19 Budesonide/Formoterol Fumarate [Symbicort Hfa 160-4.5 Mcg Inhaler 6 gm] 2 puff IH BID 12/25/19 Buspirone HCl [Buspar 10 mg Tablet] 15 mg PO BID 12/25/19 Cetirizine HCl [Zyrtec 10 mg Tablet] 10 mg PO DAILY 12/25/19 Citalopram Hydrobromide [Celexa] 30 mg PO DAILY 12/25/19 Dextroamphetamine/Amphetamine [Adderall 30 mg Tablet] 30 mg PO BID 12/25/19 Epinephrine [Epipen 2-Fantasma] 0.3 mg IM ASDIR PRN 12/25/19 Ipratropium/Albuterol Sulfate [Duoneb 3 ml Ampul] 3 ml NEB RTQ6 12/25/19 Montelukast Sodium [Singulair 10 mg Tablet] 10 mg PO QHS 12/25/19 Oxycodone HCl [Roxicodone] 15 mg PO QID 12/25/19 Oxycodone Myristate [Xtampza ER] 13.5 mg PO QHS 12/25/19 Oxycodone Myristate [Xtampza ER] 18 mg PO DAILY 12/25/19 Pregabalin [Lyrica 100 Mg Capsule] 200 mg PO BID 12/25/19 Zolpidem Tartrate [Ambien] 10 mg PO QHS 12/25/19 Allergies/Adverse Reactions: adhesive tape Allergy (Verified 02/09/19 12:46) iodine Allergy (Verified 02/09/19 12:46) latex Allergy (Verified 02/09/19 12:46) shellfish derived Allergy (Verified 02/09/19 12:46) Review of Systems Constitutional: PRESENT: as per HPI, chills, fatigue, fever(s) Eyes: ABSENT: visual disturbances, other - Eye pain Ears: ABSENT: hearing changes, other - Ear pain Nose, Mouth, and Throat: ABSENT: headache(s), sore throat Cardiovascular: PRESENT: as per HPI, dyspnea on exertion. ABSENT: chest pain, edema, orthropnea, palpitations Respiratory: PRESENT: as per HPI, cough, dyspnea, sputum. ABSENT: hemoptysis Gastrointestinal: ABSENT: abdominal pain, constipation, diarrhea, nausea, vomiting Genitourinary: ABSENT: dysuria, hematuria Musculoskeletal: PRESENT: back pain - Chronic, muscle weakness. ABSENT: joint swelling Integumentary: ABSENT: pruritus, rash Neurological: ABSENT: confusion, convulsions, focal weakness, memory loss, syncope Psychiatric: ABSENT: anxiety, depression Endocrine: ABSENT: cold intolerance, heat intolerance Hematologic/Lymphatic: ABSENT: easy bleeding, easy bruising Allergic/Immunologic: ABSENT: seasonal rhinorrhea Physical Exam Vital Signs: Temp Pulse Resp BP Pulse Ox 102.3 F H 112 H 9 L 118/70 91 L 12/24/19 18:45 12/24/19 18:45 12/24/19 20:10 12/24/19 20:10 12/24/19 20:10 Intake & Output 12/22/19 12/23/19 12/24/19 23:59 23:59 23:59 Weight 108.862 kg General appearance: PRESENT: no acute distress, cooperative, obese, other - On supplemental oxygen therapy via nasal cannula at the time of my evaluation Head exam: PRESENT: atraumatic, normocephalic Eye exam: PRESENT: conjunctiva pink. ABSENT: conjunctival injection, scleral icterus Ear exam: PRESENT: normal external ear exam. ABSENT: bleeding, drainage Mouth exam: PRESENT: dry mucosa, neck supple Neck exam: ABSENT: thyromegaly, tracheal deviation Respiratory exam: PRESENT: rales - Coarse rales noted in the right anterior lower lung [place], rhonchi - Intermittent central rhonchi in the right lung field, symmetrical, unlabored Cardiovascular exam: PRESENT: RRR. ABSENT: clicks, gallop, rubs Pulses: PRESENT: normal radial pulses, normal dorsalis pedis pul Vascular exam: PRESENT: normal capillary refill. ABSENT: pallor GI/Abdominal exam: PRESENT: normal bowel sounds, soft Rectal exam: PRESENT: deferred Extremities exam: ABSENT: joint swelling, pedal edema Musculoskeletal exam: ABSENT: deformity, dislocation Neurological exam: PRESENT: alert, oriented to person, oriented to place, oriented to time, oriented to situation, CN II-XII grossly intact. ABSENT: motor sensory deficit Psychiatric exam: PRESENT: appropriate affect, normal mood Skin exam: PRESENT: dry, intact, warm. ABSENT: jaundice, rash, urticaria Results Laboratory Results: 12/24/19 18:51 12/24/19 18:51 12/24/19 12/24/19 12/24/19 18:18 18:51 18:51 WBC 9.0 RBC 3.27 L Hgb 10.2 L Hct 29.8 L MCV 91 MCH 31.2 MCHC 34.2 RDW 13.3 Plt Count 219 Seg Neutrophils % 83.4 H Sodium 128.3 L Potassium 3.6 Chloride 92 L Carbon Dioxide 29 Anion Gap 7 BUN 10 Creatinine 1.00 Est GFR ( Amer) > 60 Glucose 99 Lactic Acid Calcium 8.4 Total Bilirubin 1.0 AST 32 Alkaline Phosphatase 112 Total Protein 6.5 Albumin 3.5 Serum HCG, Qual Urine Color MARGARITO Urine Appearance CLOUDY Urine pH 6.0 Ur Specific [place] 1.020 Urine Protein 100 H Urine Glucose (UA) 50 H Urine Ketones 20 H Urine Blood MODERATE H Urine Nitrite NEGATIVE Ur Leukocyte Esterase SMALL H Urine WBC (Auto) 6 Urine RBC (Auto) 16 12/24/19 12/24/19 18:51 18:51 WBC RBC Hgb Hct MCV MCH MCHC RDW Plt Count Seg Neutrophils % Sodium Potassium Chloride Carbon Dioxide Anion Gap BUN Creatinine Est GFR ( Amer) Glucose Lactic Acid 0.7 Calcium Total Bilirubin AST Alkaline Phosphatase Total Protein Albumin Serum HCG, Qual NEGATIVE Urine Color Urine Appearance Urine pH Ur Specific [place] Urine Protein Urine Glucose (UA) Urine Ketones Urine Blood Urine Nitrite Ur Leukocyte Esterase Urine WBC (Auto) Urine RBC (Auto) Impressions: Chest X-Ray 12/24/19 18:01 IMPRESSION: New focal consolidation in the right mid lung suspicious for pneumonia. Assessment and Plan - Diagnosis (1) Community acquired pneumonia of right middle lobe of lung Is this a current diagnosis for this admission?: Yes (2) Acute respiratory failure with hypoxia Is this a current diagnosis for this admission?: Yes (3) SIRS (systemic inflammatory response syndrome) Is this a current diagnosis for this admission?: Yes (4) Fever and chills Is this a current diagnosis for this admission?: Yes (5) Malaise and fatigue Is this a current diagnosis for this admission?: Yes (6) Ague Is this a current diagnosis for this admission?: Yes (7) Chronic back pain greater than 3 months duration Is this a current diagnosis for this admission?: Yes (8) History of right breast cancer Is this a current diagnosis for this admission?: Yes - Plan Summary Summary: Patient is admitted as a patient under investigation to the [facility] on [address] as a medical floor admission. She will receive routine supportive and symptomatic cares. She will be treated with IV Rocephin and a azithromycin initially pending culture results. She will receive supplemental oxygen via nasal cannula and/or noninvasive airway pressure support devices as needed to ma intain an adequate oxygen saturation. She will receive IV Dilaudid 0.5 to 2 mg every 3 hours as needed for pain control until such time as her usual pain medication can be brought to the hospital for administration after being verified and reconciled. She will be treated with an aggressive pulmonary toilet utilizing nebulized Xopenex, Atrovent, Pulmicort and Mucomyst. She will receive IV Decadron 2 mg every 8 hours. She will be treated with a regular diet. - Time Time Spent with patient: 15-24 minutes Medications reviewed and adjusted accordingly: Yes Anticipated Discharge Disposition: Home with Home Health Anticipated Discharge: Other - uncertain Anticipated discharge: Home - Inpatient Certification Based on my medical assessment, after consideration of the patient's comorbidities, presenting symptoms, or acuity I expect that the services needed warrant INPATIENT care.: Yes I certify that my determination is in accordance with my understanding of Medicare's requirements for reasonable and necessary INPATIENT services [42 CFR 412.3e].: Yes Medical Necessity: Need Close Monitoring Due to Risk of Patient Decompensation, Need for Nebulizer Therapy and Monitoring of Response, Need for IV Antibiotics, Risk of Complication if Not Cared For in Hospital
[2019-12-24] MEDS ORDERED: GUAIFENESIN SYRP 200 MG/10 ML UDC PO PRN (21:03)
[2019-12-24] MEDS ORDERED: LEVALBUTEROL HCL NEB 0.63 MG/3 ML AMPUL NEB PRN (21:03)
[2019-12-24] MEDS ORDERED: ACETAMINOPHEN 325 MG TABLET PO PRN (21:03)
[2019-12-24] MEDS ORDERED: MAGNESIUM HYDROXIDE SUSP 30 ML UDCUP PO PRN (21:16)
[2019-12-24] MEDS ORDERED: PROMETHAZINE HCL INJ 25 MG/1 ML VIAL IV PRN (21:16)
[2019-12-24] MEDS ORDERED: MAG HYDROX/AL HYDROX/SIMETH SUSP 30 ML UDCUP PO PRN (21:16)
[2019-12-24] MEDS ORDERED: LORAZEPAM INJ 2 MG/1 ML VIAL IV PRN (21:16)
[2019-12-24] MEDS: DEXAMETHASONE SOD PHOSPHATE INJ 4 MG/1 ML VIAL IV SCH (23:35)
[2019-12-24] MEDS: ENOXAPARIN SODIUM INJ 120 MG/0.8 ML DISP.SYRIN SUBCUT SCH (23:35)
[2019-12-24] MEDS: FAMOTIDINE 20 MG TABLET PO SCH (23:36)
[2019-12-24] MEDS: HYDROMORPHONE HCL INJ/PF 2 MG/ML AMPULE IV PRN (23:48)
[2019-12-25] MEDS: IPRATROPIUM BROMIDE 0.02% NEB 0.5 MG/2.5 ML AMPUL NEB SCH ×3 (00:53→15:50)
[2019-12-25] MEDS: LEVALBUTEROL HCL NEB 1.25 MG/3 ML AMPUL NEB SCH ×3 (00:53→15:50)
--- NOTE | 2019-12-25 01:14 | EKG REPORT ---
SEVERITY:- ABNORMAL ECG - SINUS TACHYCARDIA ATRIAL PREMATURE COMPLEX PROBABLE LVH WITH SECONDARY REPOL ABNRM : Confirmed by: Zenaida Lowry 25-Dec-2019 01:12:11
[2019-12-25 05:02] LABS: ABSOLUTE RETICS # 0.058 10^6/uL (0.028-0.122); HEMATOCRIT 29.8 % (36.0-47.0); HEMOGLOBIN 10.3 g/dL (12.0-15.5); MEAN CORPUSCULAR HEMOGLOBIN 31.3 pg (27.0-33.4); MEAN CORPUSCULAR HGB CONC 34.4 g/dL (32.0-36.0); MEAN CORPUSCULAR VOLUME 91 fl (80-97); PLATELET COUNT 188 10^3/uL (150-450); RED BLOOD COUNT 3.28 10^6/uL (3.72-5.28); RED CELL DISTRIBUTION WIDTH 13.3 % (11.5-14.0); RETICULOCYTE COUNT (AUTO) 1.77 % (0.66-2.85)
[2019-12-25 05:09] LABS: ANION GAP 6 (5-19); BLOOD UREA NITROGEN 9 mg/dL (7-20); CALCIUM 8.4 mg/dL (8.4-10.2); CARBON DIOXIDE 28 mmol/L (22-30); CHLORIDE 99 mmol/L (98-107); GLUCOSE 240 mg/dL (75-110); POTASSIUM 3.7 mmol/L (3.6-5.0)
[2019-12-25 05:49] LABS: IRON(TIBC) < 10.1 ug/dL (37-170)
[2019-12-25] MEDS: HYDROMORPHONE HCL INJ/PF 2 MG/ML AMPULE IV PRN ×3 (06:30→17:07)
[2019-12-25] MEDS: DEXAMETHASONE SOD PHOSPHATE INJ 4 MG/1 ML VIAL IV SCH ×3 (06:31→21:15)
[2019-12-25] MEDS: ACETYLCYSTEINE 20% SOLN 800 MG/4 ML VIAL.NEB NEB SCH ×2 (08:25→20:33)
[2019-12-25] MEDS: BUDESONIDE NEB 0.5 MG/2 ML AMPUL NEB SCH ×2 (08:25→20:33)
[2019-12-25] MEDS: FAMOTIDINE 20 MG TABLET PO SCH ×2 (09:05→21:16)
[2019-12-25] MEDS: ENOXAPARIN SODIUM INJ 120 MG/0.8 ML DISP.SYRIN SUBCUT SCH ×2 (09:05→21:15)
[2019-12-25] MEDS: DOCUSATE SODIUM 100 MG CAPSULE PO SCH ×2 (09:05→17:08)
[2019-12-25 09:26] LABS: APPEARANCE,URINE CLEAR; BILIRUBIN,URINE NEGATIVE (NEGATIVE); COLOR,URINE YELLOW; GLUCOSE, URINE >=500 mg/dL (NEGATIVE); KETONES,URINE TRACE mg/dL (NEGATIVE); LEUKOCYTE ESTERASE,URINE NEGATIVE (NEGATIVE); NITRITE,URINE NEGATIVE (NEGATIVE); PROTEIN,URINE 30 mg/dL (NEGATIVE); URINE SPECIFIC GRAVITY 1.013
[2019-12-25] MEDS ORDERED: ZINC SULFATE 220 MG CAPSULE PO SCH (10:00)
[2019-12-25] MEDS ORDERED: CEFTRIAXONE 1 GM/D5W RTU 1 GM/50 ML RTUPB IV SCH (10:00)
--- NOTE | 2019-12-25 12:25 | PDOC PROGRESS REPORT ---
Subjective Progress Note for:: 12/25/19 Subjective:: The patient is resting in bed. Breathing comfortably on 2 L nasal cannula oxygen. She has no complaints at this time. Reason For Visit: COMMUNITY ACQUIRED RIGHT MIDDLE LOBE PNEUMONIA, Physical Exam Vital Signs: Temp Pulse Resp BP Pulse Ox 97.8 F 67 16 108/70 99 12/25/19 08:23 12/25/19 08:25 12/25/19 08:25 12/25/19 08:23 12/25/19 08:25 Intake & Output 12/24/19 12/25/19 12/26/19 06:59 06:59 06:59 Intake Total 522 3320 Balance 522 3320 Weight 109 kg General appearance: PRESENT: no acute distress, cooperative, well-developed Head exam: PRESENT: atraumatic Eye exam: PRESENT: conjunctiva pink. ABSENT: scleral icterus Ear exam: PRESENT: normal external ear exam. ABSENT: bleeding, drainage Mouth exam: PRESENT: moist. ABSENT: dry mucosa, laceration Neck exam: ABSENT: carotid bruit, JVD, lymphadenopathy, thyromegaly Respiratory exam: PRESENT: clear to auscultation maritza, symmetrical, unlabored. ABSENT: prolonged expiratory phas, rales, rhonchi, tachypnea, wheezes Cardiovascular exam: PRESENT: RRR, +S1, +S2. ABSENT: bradycardia, diastolic murmur, irregular rhythm, systolic murmur, tachycardia GI/Abdominal exam: PRESENT: normal bowel sounds, soft. ABSENT: distended, guarding, tenderness Rectal exam: PRESENT: deferred Gentrourinary exam: ABSENT: indwelling catheter Extremities exam: ABSENT: pedal edema Musculoskeletal exam: PRESENT: ambulatory, full ROM, normal inspection. ABSENT: deformity, dislocation Neurological exam: PRESENT: alert, awake, oriented to person, oriented to place, oriented to time, oriented to situation, CN II-XII grossly intact. ABSENT: a ltered, motor sensory deficit Psychiatric exam: PRESENT: appropriate affect, normal mood. ABSENT: agitated, anxious Focused psych exam: ABSENT: delusional, paranoid, restlessness Skin exam: PRESENT: dry, normal color, warm, other - Multiple tattoos. ABSENT: rash Results Laboratory Results: 12/25/19 04:35 12/25/19 04:35 12/24/19 12/24/19 12/24/19 18:18 18:51 18:51 WBC 9.0 RBC 3.27 L Hgb 10.2 L Hct 29.8 L MCV 91 MCH 31.2 MCHC 34.2 RDW 13.3 Plt Count 219 Seg Neutrophils % 83.4 H Retic Count (auto) Sodium 128.3 L Potassium 3.6 Chloride 92 L Carbon Dioxide 29 Anion Gap 7 BUN 10 Creatinine 1.00 Est GFR ( Amer) > 60 Glucose 99 Lactic Acid Calcium 8.4 Iron TIBC Ferritin Total Bilirubin 1.0 AST 32 Alkaline Phosphatase 112 Total Protein 6.5 Albumin 3.5 Vitamin B12 Folate Serum HCG, Qual Urine Color MARGARITO Urine Appearance CLOUDY Urine pH 6.0 Ur Specific Manning 1.020 Urine Protein 100 H Urine Glucose (UA) 50 H Urine Ketones 20 H Urine Blood MODERATE H Urine Nitrite NEGATIVE Ur Leukocyte Esterase SMALL H Urine WBC (Auto) 6 Urine RBC (Auto) 16 12/24/19 12/24/19 12/24/19 18:51 18:51 23:54 WBC RBC Hgb Hct MCV MCH MCHC RDW Plt Count Seg Neutrophils % Retic Count (auto) Sodium Potassium Chloride Carbon Dioxide Anion Gap BUN Creatinine Est GFR ( Amer) Glucose Lactic Acid 0.7 0.6 L Calcium Iron TIBC Ferritin Total Bilirubin AST Alkaline Phosphatase Total Protein Albumin Vitamin B12 Folate Serum HCG, Qual NEGATIVE Urine Color Urine Appearance Urine pH Ur Specific Manning Urine Protein Urine Glucose (UA) Urine Ketones Urine Blood Urine Nitrite Ur Leukocyte Esterase Urine WBC (Auto) Urine RBC (Auto) 12/25/19 12/25/19 12/25/19 04:35 04:35 04:35 WBC 7.0 RBC 3.28 L Hgb 10.3 L Hct 29.8 L MCV 91 MCH 31.3 MCHC 34.4 RDW 13.3 Plt Count 188 Seg Neutrophils % Retic Count (auto) 1.77 Sodium 133.1 L Potassium 3.7 Chloride 99 Carbon Dioxide 28 Anion Gap 6 BUN 9 Creatinine 0.76 Est GFR ( Amer) > 60 Glucose 240 H Lactic Acid 0.6 L Calcium 8.4 Iron < 10.1 L TIBC 259 Ferritin 181.00 H Total Bilirubin AST Alkaline Phosphatase Total Protein Albumin Vitamin B12 852.0 Folate 19.80 Serum HCG, Qual Urine Color Urine Appearance Urine pH Ur Specific Manning Urine Protein Urine Glucose (UA) Urine Ketones Urine Blood Urine Nitrite Ur Leukocyte Esterase Urine WBC (Auto) Urine RBC (Auto) 12/25/19 12/25/19 07:54 09:10 WBC RBC Hgb Hct MCV MCH MCHC RDW Plt Count Seg Neutrophils % Retic Count (auto) Sodium Potassium Chloride Carbon Dioxide Anion Gap BUN Creatinine Est GFR ( Amer) Glucose Lactic Acid 0.6 L Calcium Iron TIBC Ferritin Total Bilirubin AST Alkaline Phosphatase Total Protein Albumin Vitamin B12 Folate Serum HCG, Qual Urine Color YELLOW Urine Appearance CLEAR Urine pH 6.0 Ur Specific Manning 1.013 Urine Protein 30 H Urine Glucose (UA) >=500 H Urine Ketones TRACE H Urine Blood MODERATE H Urine Nitrite NEGATIVE Ur Leukocyte Esterase NEGATIVE Urine WBC (Auto) 2 Urine RBC (Auto) 8 Impressions: Chest X-Ray 12/24/19 18:01 IMPRESSION: New focal consolidation in the right mid lung suspicious for pneumonia. Assessment and Plan - Diagnosis (1) Community acquired pneumonia of right middle lobe of lung Is this a current diagnosis for this admission?: Yes Plan: Lungs are actually clear today. Oxygen saturation is in the high 90s on 2 L nasal cannula. Currently on ceftriaxone and a azithromycin. With her d-dimer and ferritin elevated this certainly could be a COVID pneumonia. (2) Acute respiratory failure with hypoxia Is this a current diagnosis for this admission?: Yes Plan: The patient is saturating in the high 90s on 2 L. We will try 1 L. I explained to her that ideal oxygen saturation would be 90 to 94% due to her underlying COPD. (3) SIRS (systemic inflammatory response syndrome) Is this a current diagnosis for this admission?: Yes Plan: Improved with fluids and antibiotics (4) Fever and chills Is this a current diagnosis for this admission?: Yes Plan: T-max was 102.3 on admission. She has been afebrile since. (5) Ague Is this a current diagnosis for this admission?: Yes Plan: No more fever or shaking chills today (6) Depression with anxiety Is this a current diagnosis for this admission?: Yes Plan: Continue BuSpar and Celexa (7) Malaise and fatigue Is this a current diagnosis for this admission?: Yes Plan: Likely consistent with her infection. Will encourage increased activity. (8) Chronic back pain greater than 3 months duration Is this a current diagnosis for this admission?: Yes Plan: Continue pain management medication (9) History of right breast cancer Is this a current diagnosis for this admission?: Yes Plan: No active plan at this time. - Plan Summary Summary: Patient is admitted as a patient under investigation to the COVID-19 unit on [address] as a medical floor admission. She will receive routine supportive and symptomatic cares. She will be treated with IV Rocephin and a azithromycin initially pending culture results. She will receive supplemental oxygen via nasal cannula and/or noninvasive airway pressure support devices as needed to maintain an adequate oxygen saturation. She will receive IV Dilaudid 0.5 to 2 mg every 3 hours as needed for pain control until such time as her usual pain medication can be brought to the hospital for administration after being verified and reconciled. She will be treated with an aggressive pulmonary toilet utilizing nebulized Xopenex, Atrovent, Pulmicort and Mucomyst. She will receive IV Decadron 2 mg every 8 hours. She will be treated with a regular diet. - Time Time Spent with patient: 15-24 minutes Medications reviewed and adjusted accordingly: Yes Anticipated Discharge Disposition: Home, Self Care Anticipated Discharge: within 72 hours
[2019-12-25] MEDS ORDERED: NITROGLYCERIN 0.4 MG/TAB 25 TAB/BOTTLE SL PRN ×2 (15:26→17:04)
[2019-12-25] MEDS ORDERED: PHARMACY COMMUNICATION ORDER MC NR (17:15)
--- NOTE | 2019-12-25 17:35 | Progress Note ---
Provider Note Provider Note: I was called this afternoon by the patient's nurse. She reports some right- sided chest discomfort. There is worse when she takes a deep breath. We did obtain a serum troponin (less than 0.012) as well as an EKG (normal sinus rhythm) She was given 1 sublingual nitroglycerin tablet and she feels it was helpful. I will order 2 additional serial troponins. The patient is normally on BuSpar, citalopram, Lyrica, Ambien, Adderall and long-acting oxycodone. These medications were not ordered earlier. It could be she is reacting to the missed doses. We will continue to monitor.
[2019-12-25] MEDS ORDERED: (PENDING PHARMACY ID) (Dextroamphetamine/Amphetamine [Adderall 30 Mg Tablet] 30 MG) PO SCH (18:00)
[2019-12-25] MEDS ORDERED: PREGABALIN 100 MG CAPSULE PO SCH (18:00)
[2019-12-25] MEDS ORDERED: AZITHROMYCIN 500 MG in DEXTROSE 5%-WATER 250 ML IV SCH (18:00)
[2019-12-25] MEDS ORDERED: AZITHROMYCIN 250 MG TABLET PO SCH (18:00)
[2019-12-25] MEDS ORDERED: BUSPIRONE HCL 10 MG TABLET PO SCH (18:00)
[2019-12-25 21:10] VITALS: BP 127/74
[2019-12-25] MEDS ORDERED: (PENDING PHARMACY ID) (Oxycodone Myristate [Xtampza Er] 13.5 MG) PO SCH (22:00)
[2019-12-25] MEDS ORDERED: OXYCODONE HCL SR 10 MG TABLET PO SCH (22:00)
[2019-12-25] MEDS ORDERED: MONTELUKAST SODIUM 10 MG TABLET PO SCH (22:00)
[2019-12-25] MEDS ORDERED: ZOLPIDEM TARTRATE 5 MG TABLET PO SCH (22:00)
[2019-12-25] MEDS ORDERED: (PENDING PHARMACY ID) (Zolpidem Tartrate [Ambien] 10 MG) PO SCH (22:00)
--- NOTE | 2019-12-25 22:55 | Left Against Medical Advice ---
Against Medical Advice Admission Date/Time: 12/24/19 21:03 Primary Care Provider: JARETH PAREDES DO Date of Patient Emigration: 12/25/19 - Diagnosis: (1) Community acquired pneumonia of right middle lobe of lung Is this a current diagnosis for this admission?: Yes (2) Acute respiratory failure with hypoxia Is this a current diagnosis for this admission?: Yes (3) SIRS (systemic inflammatory response syndrome) Is this a current diagnosis for this admission?: Yes (4) Fever and chills Is this a current diagnosis for this admission?: Yes (5) Malaise and fatigue Is this a current diagnosis for this admission?: Yes (6) Ague Is this a current diagnosis for this admission?: Yes (7) Chronic back pain greater than 3 months duration Is this a current diagnosis for this admission?: Yes (8) History of right breast cancer Is this a current diagnosis for this admission?: Yes - Summary: Summary: Please see Admission and Progress Notes as well. CHRISTEL FERNANDEZ is a 49 F, who LEFT AGAINST MEDICAL ADVICE. The Patient was admitted on 12/24/19 21:03.
[2019-12-26] MEDS ORDERED: CITALOPRAM HYDROBROMIDE 20 MG TABLET PO SCH (10:00)
[2019-12-26] MEDS ORDERED: CETIRIZINE 10 MG TABLET PO SCH (10:00)
[2019-12-26] MEDS ORDERED: OXYCODONE HCL SR 10 MG TABLET PO SCH (10:00)
[2019-12-26] MEDS ORDERED: (PENDING PHARMACY ID) (Oxycodone Myristate [Xtampza Er] 18 MG) PO SCH (10:00)
--- NOTE | 2019-12-26 10:25 | EKG REPORT ---
SEVERITY:- NORMAL ECG - SINUS RHYTHM : Confirmed by: Zenaida Lowry 26-Dec-2019 10:24:11
== END 2019-12-25 21:55 | disposition left against medical advice (07) | DRG 193 ==
LOC: ER 17:53 → EH 21:03 → 3N 23:13
PROVIDERS: ADMIT Emergency Medicine; ATTEND Hospitalist
DX: J18.9 Pneumonia, unspecified organism (principal); J96.01 Acute respiratory failure with hypoxia; J44.0 Chronic obstructive pulmonary disease with (acute) lower respiratory infection; Z20.828 Contact with and (suspected) exposure to other viral communicable diseases; G89.29 Other chronic pain; M54.9 Dorsalgia, unspecified; E66.9 Obesity, unspecified; Z90.11 Acquired absence of right breast and nipple; Z85.3 Personal history of malignant neoplasm of breast; Z82.49 Family history of ischemic heart disease and other diseases of the circulatory system; Z80.9 Family history of malignant neoplasm, unspecified; Z79.899 Other long term (current) drug therapy; Z79.51 Long term (current) use of inhaled steroids; Z79.891 Long term (current) use of opiate analgesic; Z91.040 Latex allergy status; Z91.013 Allergy to seafood; Z88.8 Allergy status to other drugs, medicaments and biological substances; Z91.048 Other nonmedicinal substance allergy status
CPT/HCPCS: 36415; 71045; 80048; 80053; 81001; 82607; 82728; 82746; 83540; 83550; 83605; 84484; 84703; 85025; 85027; 85045; 85379; 85610; 87040; 87070; 87077; 87186; 87205; 87635; 93005; 93010; 94640; 96365; 96368; 99285; C9803; J0456; J0696; J1100; J1170; J1650; J3490; J7120